=== PATIENT | male | born 1995 | race Caucasian/White ===

== ENCOUNTER → 2018-09-21 | Outpatient (CLI) | payer OTHER ==
--- NOTE | 2018-09-21 10:04 | RADIOLOGY REPORT (SQ) ---
EXAM DESCRIPTION: DUPLEX ART/BERNARDINO FLOW COMPLETE COMPLETED DATE/TIME: 09/21/2018 8:24 am REASON FOR STUDY: SARA (I70.1) COMPARISON: None. TECHNIQUE: Realtime and static grayscale images acquired. Selected color Doppler, velocities and spe ctral images recorded. LIMITATIONS: Difficult to visualize the right renal artery origin off the aorta FINDINGS: RIGHT KIDNEY: RENAL ARTERY VELOCITIES: At the hilum, 130 cm/sec. Segmental artery velocity 57 cm/sec. RENAL VEIN: Color doppler flow present, patent. VELOCITY RATIO: Normal. Normal waveforms. KIDNEY: Kidney is 11 cm in length with diffuse cortical thinning and increased echogenicity. No cy sts, stones, or hydronephrosis. LEFT KIDNEY: RENAL ARTERY VELOCITIES: At the origin 147, at the hilum 95 cm/sec. Segmental artery velocity 76 cm/ sec. RENAL VEIN: Color doppler flow present, patent. VELOCITY RATIO: Normal. Normal waveforms. KIDNEY: Kidney is 11.3 cm in length with increased cortical echogenicity. No cysts, stones, or hyd ronephrosis BLADDER: Bilateral ureteral jets are identified. Well distended, no stones. OTHER: No other significant finding. IMPRESSION: NO DOPPLER EVIDENCE OF HEMODYNAMICALLY SIGNIFICANT RENAL ARTERY STENOSIS. MILD INCREASED ECHOGENICITY OF THE KIDNEYS COMMENT: NORMAL RENAL ARTERY/AORTA VELOCITY RATIO IS LESS THAN OR EQUAL TO 3.5. TECHNICAL DOCUMENTATION: JOB ID: [id number] [employer]- All Rights Reserved Reading location - IP/workstation name: [email or web address]
== END ==
LOC: RAD 07:18
PROVIDERS: ATTEND Family Medicine
DX: I70.1 Atherosclerosis of renal artery (principal)
CPT/HCPCS: 93975